=== PATIENT | male | born 1990 | race Caucasian/White ===

== ENCOUNTER 2018-06-17 12:27 | Day surgery (SDC) | payer OTHER ==
[2018-06-11 11:15] LABS: APPEARANCE,URINE CLEAR; BILIRUBIN,URINE NEGATIVE (NEGATIVE); COLOR,URINE YELLOW; GLUCOSE, URINE NEGATIVE (NEGATIVE); KETONES,URINE NEGATIVE (NEGATIVE); LEUKOCYTE ESTERASE,URINE NEGATIVE (NEGATIVE); NITRITE,URINE NEGATIVE (NEGATIVE); PROTEIN,URINE NEGATIVE (NEGATIVE); URINE SPECIFIC GRAVITY 1.015; UROBILINOGEN,URINE NEGATIVE mg/dL (<2.0)
[2018-06-11 11:27] LABS: HEMATOCRIT 44.2 % (37.9-51.0); HEMOGLOBIN 15.9 g/dL (13.5-17.0); MEAN CORPUSCULAR HEMOGLOBIN 30.8 pg (27.0-33.4); MEAN CORPUSCULAR VOLUME 85 fl (80-97); RED BLOOD COUNT 5.17 10^6/uL (4.35-5.55); RED CELL DISTRIBUTION WIDTH 13.4 % (11.5-14.0); WHITE BLOOD COUNT 6.9 10^3/uL (4.0-10.5)
[2018-06-11 11:50] LABS: ANION GAP 14 (5-19); BLOOD UREA NITROGEN 18 mg/dL (7-20); CALCIUM 10.3 mg/dL (8.4-10.2); CARBON DIOXIDE 26 mmol/L (22-30); CHLORIDE 103 mmol/L (98-107); GLUCOSE 81 mg/dL (75-110); SODIUM 142.8 mmol/L (137-145)
[2018-06-11 11:53] LABS: PLATELET COUNT 176 10^3/uL (150-450)
--- NOTE | 2018-06-11 11:56 | RADIOLOGY REPORT (SQ) ---
EXAM DESCRIPTION: CHEST PA/LATERAL COMPLETED DATE/TIME: 06/11/2018 11:44 am REASON FOR STUDY: PRE-OP COMPARISON: None. EXAM PARAMETERS: NUMBER OF VIEWS: two views TECHNIQUE: Digital Frontal and Lateral radiographic views of the chest acquired. RADIATION DOSE: NA LIMITATIONS: none FINDINGS: LUNGS AND PLEURA: No opacities, masses or pneumothorax. No pleural effusion. MEDIASTINUM AND HILAR STRUCTURES: No masses or contour abnormalities. HEART AND VASCULAR STRUCTURES: Heart normal size. No evidence for failure. BONES: No acute findings. HARDWARE: None in the chest. OTHER: No other significant finding. IMPRESSION: 1. NO SIGNIFICANT RADIOGRAPHIC FINDING IN THE CHEST. TECHNICAL DOCUMENTATION: JOB ID: [id number] [employer]- All Rights Reserved Reading location - IP/workstation name: [email or web address]
--- NOTE | 2018-06-12 22:14 | EKG REPORT ---
SEVERITY:- ABNORMAL ECG - SINUS RHYTHM ST ELEVATION SUGGESTS PERICARDITIS : Confirmed by: Nestor Jane 12-Jun-2018 22:14:06
[~2018-06-17 12:27] MED LIST: BUPIVACAINE HCL 0.5 % INJ/PF 30 ML SDV ONE; CEFAZOLIN 2 GM/D5W RTU 2 GM/50 ML RTUPB IV PRN; LACTATED RINGERS 1000 ML IV PRN; LIDOCAINE 0.5% INJ-PF (5 MG/ML) 50 ML SDV SUBCUT PRN
[2018-06-17] MEDS ORDERED: FENTANYL CITRATE INJ/PF 100 MCG/2 ML AMPUL ONE ×3 (13:43→16:46)
[2018-06-17] MEDS ORDERED: DEXAMETHASONE SOD PHOSPHATE INJ 4 MG/1 ML VIAL ONE (13:43)
[2018-06-17] MEDS ORDERED: MIDAZOLAM 2 MG/2 ML INJ ONE (13:43)
[2018-06-17] MEDS ORDERED: ONDANSETRON HCL INJ/PF 4 MG/2 ML SDV ONE (13:43)
[2018-06-17] MEDS ORDERED: PROPOFOL INJ 200 MG/20 ML VIAL IV ONE (13:43)
[2018-06-17] MEDS ORDERED: EPHEDRINE SULFATE INJ 50 MG/1 ML AMPULE ONE (13:44)
[2018-06-17] MEDS ORDERED: ACETAMINOPHEN 1,000 MG/100 ML RTUPB IV ONE (13:44)
[2018-06-17] MEDS ORDERED: CEFAZOLIN 2 GM/D5W RTU 2 GM/50 ML RTUPB IV ONE (14:10)
[2018-06-17] MEDS ORDERED: SUCCINYLCHOLINE CHLORIDE INJ 200 MG/10 ML VIAL ONE (15:03)
[2018-06-17] MEDS ORDERED: MORPHINE SULFATE 10 MG/ML INJ IV PRN ×2 (15:29→17:15)
[2018-06-17] MEDS ORDERED: DIPHENHYDRAMINE HCL 50 MG/ML VIAL IV PRN (15:29)
[2018-06-17] MEDS ORDERED: PROMETHAZINE HCL INJ 25 MG/1 ML VIAL IV PRN ×2 (15:29)
[2018-06-17] MEDS ORDERED: MEPERIDINE HCL/PF INJ 25 MG/1 ML DISP.SYRIN IV PRN (15:29)
[2018-06-17] MEDS ORDERED: FENTANYL CITRATE INJ/PF 100 MCG/2 ML AMPUL IV PRN ×3 (15:29)
--- NOTE | 2018-06-17 17:04 | Discharge Summary ---
Discharge Summary (SDC) - Discharge Final Diagnosis: Left wrist TFCC tear Date of Surgery: 06/17/18 Discharge Date: 06/17/18 Condition: Good Treatment or Instructions: Schedule Follow Up w/ Dr. Jeison Pedersen @ [facility] for Surgery to be seen in 10-14 days or as scheduled [place]: [place]: [place]: Ice and elevate Keep splint clean/dry/intact. If your fingers become numb please unwrap the Kadeem wrap but leave the splint in place, if the sensation does not return within 30 minutes please return to the emergency department. May begin finger range of motion attempting to make full fist. Please use ibuprofen (Motrin or Advil) 600-800 mg every 8 hours as needed for pain or fever DO NOT TAKE w/ TORADOL may use once TORADOL complete. You may a lso use acetaminophen (Tylenol) 1000 mg every 4-6 hours as needed for pain or fever. Please be aware that many medications contain acetaminophen, do not exceed a total of 1000 mg of acetaminophen every 6 hours. If ibuprofen and acetaminophen are not sufficient for your pain you may take the Percocet/[place]. Please be aware that the Percocet/[place] does contain Tylenol. Stool softener of choice when on pain medication. USE OF [id number] IBUPROFEN: Ibuprofen (Advil, Nuprin, Medipren, Motrin IB) is a medication for fever and pain control. In addition, it has anti- inflammatory effects which may be beneficial, especially in the treatment of injuries. It's best to take ibuprofen with food. Persons with ulcer disease or allergy to aspirin should notify their physician of this before taking ibuprofen. Ibuprofen can be given every four to six hours, for a total of four doses daily. Age Pain or fever dose Antiinflammatory dose 6-8 yr 200 mg (1 tab) 200 mg (1 tab) 9-11 yr 200 mg (1 tab) 200-400 mg (1-2 tab) 11-14 yr 200-400 mg (1-2 tab) 400 mg (2 tab) 15-adult 400 mg (2 tab) 600 mg (3 tab) ORAL NARCOTIC MEDICATION: You have been given a prescription for pain control. This medication is a narcotic. It's best taken with food, as nausea can result if taken on an empty stomach. Don't operate machinery or drive within six hours of taking this medication. Do not combine this medicine with alcohol, or with any medication which can cause sedation (such as cold tablets or sleeping pills) unless you get permission from the physician. Narcotics tend to cause constipation. If possible, drink plenty of fluids and eat a diet high in fiber and fruits. Please be aware that prescription narcotics also have the potential for abuse. People become addicted to these medications because of the general sense of wellbeing that they induce. This feeling along with a significant reduction in tension, anxiety, and aggression provides a stimulating seductive quality to these drugs. Once your pain is under control, we encourage you to discard your unused narcotics. Prescriptions: Ketorolac Tromethamine [Toradol 10 mg Tablet] 10 mg PO Q8HP PRN #12 tablet PRN Reason: Oxycodone HCl/Acetaminophen [Percocet 5-325 mg Tablet] 1 tab PO Q6 PRN #25 tab PRN Reason: Discharge Diet: As Tolerated Respiratory Treatments at Home: Deep Breathing/Coughing Discharge Activity: No Lifting Over 10 Pounds, No Lifting/Push/Pulling Report the Following to Your Physician Immediately: Fever over 101 Degrees, Unusual Bleeding, Redness, Swelling, Warmth, Increased Soreness
[2018-06-17] MEDS ORDERED: OXYCODONE-ACETAMINOPHEN 5-325 MG TABLET PO PRN (17:15)
[2018-06-17] MEDS ORDERED: ONDANSETRON HCL INJ/PF 4 MG/2 ML SDV IV PRN (17:15)
--- NOTE | 2018-06-17 17:15 | Operative Report ---
Operative Report DATE OF SURGERY: 06/17/18 PREOPERATIVE DIAGNOSIS: Left wrist partial scapholunate ligament tear POSTOPERATIVE DIAGNOSIS: Left wrist TFCC tear, synovitis OPERATION: Left wrist surgical arthroscopy with debridement, partial synovectomy arthroscopic TFCC repair SURGEON: ANN-MARIE TINAJERO ANESTHESIA: GA COMPLICATIONS: None ESTIMATED BLOOD LOSS: Minimal PROCEDURE: Indication for above procedure: 27-year-old male with long-standing history of left wrist discomfort. Temperature measures including anti-inflammatories, immobilization and occupational therapy without resolution of symptoms. Patient MRI demonstrating partial scapholunate ligament tear given patient's notable instability on examination decision was made to proceed with operative intervention which includes surgical arthroscopy left wrist with possible open repair surgery as indicated. Risks and benefits were explained patient verbalized understanding consented for the procedure. Procedure In Detail: Patient was seen and evaluated in the preoperative holding area. The LEFT upper extremity was initialized and marked. Patient received 2g of Ancef IV for bacterial prophylaxis. Patient was taken back to the operative room where transferred to the operative table and placed under general anesthesia. Once they were adequately anesthetized a nonsterile tourniquet was placed on the upper extremity. A surgical team debriefing was performed ensuring all instrumentation was available, the surgical procedure was discussed with possible concerns reviewed. The upper extremity was prepped with chlorhexidine and alcohol and draped in a sterile fashion. A timeout was done identifying correct patient, procedure and extremity everyone in attendance agree with this and verbalized no concerns. The extremity was exsanguinated the tourniquet was inflated to 250 mmHg. Patient was placed in the [place] wrist however. 3-4 portal was established via triangulation a 4-5 portal was established as well. Diagnostic arthroscopy demonstrated no evidence of degenerative changes. No disruption of the volar radiocarpal ligaments. Diagnostic arthroscopy demonstrated no evidence of involvement of the scapholunate membranous portion. Inspection of the TFCC demonstrated a ulnar sided peripheral TFCC tear which was full-thickness in nature upon probing. Thus decision was made to proceed with TFCC repair. There was concomitant evidence of synovitis within the prestyloid recess and a partial synovectomy performed with full-radius resector. Edges were then debrided to smooth with a ablator. A midcarpal radial portal was established and via triangulation a midcarpal ulnar portal established as well. Probe was introduced into the midcarpal joint. There was no evidence of scapholunate step-off or widening with manipulation. Furthermore no evidence of lunotriquetral step-off widening with manipulation utilizing the probe. Thus decision was made to return attention to TFCC repair. 18-gauge needle was introduced through a 6U portal to engage the peripheral TFCC tear. A 3-0 PDS suture was then placed through the 18-gauge needle and retrieved from the 4-5 portal. A 3-0 Supramid suture was then passed through the TFCC shadowing through the PDS. 18-gauge needle was then introduced into the L4-5 portal and passed through the peripheral aspect of the TFCC tear once again shuttling the Supramid suture with the PDS obtaining a horizontal mattress configuration. Both sutures were then retrieved from the 4-5 portal incision was widened to ensure no impingement of the extensor tendons. This was then tied to the dorsal ulnar capsule. Arthroscopy demonstrated yazdanism of the TFCC trampoline effect upon probing. No DRUJ instability at completion of the repair. Skin incisions were closed with interrupted 3-0 nylon suture. 30 cc of 0.5% bupivacaine without epinephrine was injected for postoperative pain control. Patient was placed in a sugar tong splint maintaining the neutral position. Sponge counts, instrument counts, needle counts were correct. Patient was then awoken from anesthesia. Transferred from the operating room table to the operating room stretcher. There was no intraoperative complications patient tolerated procedure well stable to PACU. Posterior plan: Patient followed in the office in 2 weeks at which point we will transition him to a [place] cast for 4 weeks[address] will then place the patient in a short arm cast for an additional 2 weeks to begin occupational therapy 6 weeks postoperatively.
[2018-06-17] MEDS ORDERED: OXYCODONE-ACETAMINOPHEN 5-325 MG TABLET ONE (18:23)
[2018-06-17 19:35] VITALS: BP 140/90
--- NOTE | 2018-06-18 08:43 | RADIOLOGY REPORT (SQ) ---
EXAM DESCRIPTION: NO CHG FLUORO; WRIST LEFT 2 VIEWS COMPLETED DATE/TIME: 06/17/2018 7:15 pm REASON FOR STUDY: LT WRIST ARTHROSCOPE S63.511A SPRAIN OF CARPAL JOINT OF RIGHT WRIST, INITIAL ENCO COMPARISON: None. FLUOROSCOPY TIME: 9 seconds 2 images saved to PACS. TECHNIQUE: Intra-operative images acquired during surgical procedure to evaluate progress. NUMBER OF IMAGES: 0.2 LIMITATIONS: None. FINDINGS: AP and lateral views of the carpus (left) obtained during manipulation under fluoroscopy. No overt malalignment. No gross fracture. Correlate with operative note. IMPRESSION: IMAGE(S) OBTAINED DURING PROCEDURE. COMMENT: Quality ID [id number]: Final reports for procedures using fluoroscopy that document radiation exp osure indices, or exposure time and number of fluorographic images (if radiation exposure indices are not available) Please consult full operative report of the attending physician for description of the procedure. TECHNICAL DOCUMENTATION: JOB ID: [id number] [employer]- All Rights Reserved Reading location - IP/workstation name: [email or web address]
--- NOTE | 2018-06-18 08:43 | RADIOLOGY REPORT (SQ) ---
EXAM DESCRIPTION: NO CHG FLUORO; WRIST LEFT 2 VIEWS COMPLETED DATE/TIME: 06/17/2018 7:15 pm REASON FOR STUDY: LT WRIST ARTHROSCOPE S63.511A SPRAIN OF CARPAL JOINT OF RIGHT WRIST, INITIAL ENCO COMPARISON: None. FLUOROSCOPY TIME: 9 seconds 2 images saved to PACS. TECHNIQUE: Intra-operative images acquired during surgical procedure to evaluate progress. NUMBER OF IMAGES: 0.2 LIMITATIONS: None. FINDINGS: AP and lateral views of the carpus (left) obtained during manipulation under fluoroscopy. No overt malalignment. No gross fracture. Correlate with operative note. IMPRESSION: IMAGE(S) OBTAINED DURING PROCEDURE. COMMENT: Quality ID [id number]: Final reports for procedures using fluoroscopy that document radiation exp osure indices, or exposure time and number of fluorographic images (if radiation exposure indices are not available) Please consult full operative report of the attending physician for description of the procedure. TECHNICAL DOCUMENTATION: JOB ID: [id number] [employer]- All Rights Reserved Reading location - IP/workstation name: [email or web address]
== END 2018-06-17 19:25 | disposition home or self-care (01) ==
LOC: OROUT 12:27
PROVIDERS: ATTEND Orthopaedic Surgery
DX: S63.592A Other specified sprain of left wrist, initial encounter (principal); W19.XXXA Unspecified fall, initial encounter; M65.832 Other synovitis and tenosynovitis, left forearm; M25.532 Pain in left wrist; Z87.891 Personal history of nicotine dependence
CPT/HCPCS: 93010; 93005; 36415; 85027; 80048; 81001; 71046; 73100; 29846; 29844; J2250; J3490; J1100; J3010; J0330; J2405; J2704; J0690; J0131